=== PATIENT | female | born 1980 | race Two or more races ===

== ENCOUNTER 2016-11-11 21:53 | Emergency (ER) | payer MEDICAID ==
[~2016-11-11] VITALS: Ht 157.5 cm; Wt 47.6 kg
[2016-11-11 23:08] LABS: Urine Bilirubin Negative (Negative); Urine Blood Negative /uL (Negative); Urine Color Yellow (Yellow); Urine Glucose Normal (Normal); Urine Ketone Negative (Negative); Urine Mucus FEW (None Seen); Urine Nitrite Negative (Negative); Urine RBC <1 /hpf (0 - 4); Urine Squamous Epithelial Cell FEW /hpf (<5); Urine Urobilinogen Normal (Negative); Urine pH 6.5 (5.0-8.0)
[2016-11-12 02:16] LABS: Salicylate < 1.7 mg/dL (2.8-20.0)
[2016-11-12 02:43] LABS: Acetaminophen < 2.0 ug/mL (10-30)
[2016-11-12 06:03] LABS: Basophils # (auto) 0 uL; Basophils % (auto) 0.4 % (0.0-2.0); Eosinophils # (auto) 0.1 uL; Eosinophils % (auto) 2.3 % (0.0-7.0); Hematocrit 36.4 % (36.0-46.0); Lymphocytes # (auto) 1.6 uL; Lymphocytes % (auto) 28.1 % (10.0-50.0); Mean Corpuscular Hemoglobin 31.5 pg (28.0-32.0); Mean Corpuscular Hgb Conc. 32.9 g/dL (32.0-36.0); Mean Corpuscular Volume 95.7 fL (80.0-100.0); Mean Platelet Volume 8.1 fL (7.4-10.4); Monocytes # (auto) 0.4 uL; Neutrophils # (auto) 3.4 uL; Neutrophils % (auto) 61.2 % (37.0-80.0); Platelet Count (auto) 355 10^3/uL (140-450); Red Cell Distribution Width 14.2 % (11.6-16.0); White Blood Cell 5.5 10^3/uL (4.4-10.8)
[2016-11-12 06:29] LABS: Partial Thromboplastin Time 26.4 sec (22.64-33.71); Prothrombin Time 10.8 sec (9.37-12.3)
[2016-11-12 06:31] LABS: Albumin 3.6 g/dL (3.4-5.0); Anion Gap 9 (5-15); Aspartate Aminotransferase 23 U/L (15-37); BUN/Creatinine Ratio 8.6; Blood Urea Nitrogen 6 mg/dL (7-18); Calcium 8.2 mg/dL (8.5-10.1); Carbon Dioxide 26 mmol/L (21-32); Chloride 105 mmol/L (98-107); GFR African American 123 mL/min; GFR Non-African American 102 mL/min; Glucose 92 mg/dL (74-106); Potassium 3.5 mmol/L (3.5-5.1); Sodium 140 mmol/L (136-145)
[2016-11-12 06:33] LABS: Alkaline Phosphatase 54 U/L (45-117); Bilirubin, Total 0.3 mg/dL (0.2-1.0)
[2016-11-12] MEDS ORDERED: OLANZapine 5 MG TAB PO ONE (22:00)
[2016-11-13] MEDS ORDERED: IBUPROFEN 600 MG TAB PO PRN (08:30)
[2016-11-14 11:04] VITALS: BP 105/55
== END 2016-11-14 11:11 | disposition short-term general hospital (02) ==
LOC: ER 22:02
DX: F32.9 Major depressive disorder, single episode, unspecified (principal); R45.851 Suicidal ideations
CPT/HCPCS: 36415; 80053; 80320; 80329; 81001; 81025; 85025; 85610; 85730; 93005; 99285; G0434